=== PATIENT | female | born 2000 | race Caucasian/White ===

== ENCOUNTER → 2019-04-04 09:26 | Outpatient (BNVA) | payer MEDICARE, MEDICAID, SELFPAY | PROVIDERS: Family Provider Family Medicine; PCP Urology; Visit Provider Nurse Practitioner Psychiatric/Mental Health | DX: F84.0 Autistic disorder (principal); R41.83 Borderline intellectual functioning | CPT/HCPCS: 99214; 99215 ==

== ENCOUNTER → 2019-06-27 08:24 | Outpatient (BNVA) | payer MEDICARE, MEDICAID, SELFPAY | PROVIDERS: Family Provider Family Medicine; PCP Urology; Visit Provider Nurse Practitioner Psychiatric/Mental Health | DX: F84.0 Autistic disorder (principal); R41.83 Borderline intellectual functioning | CPT/HCPCS: 99213 ==

== ENCOUNTER → 2019-09-19 07:33 | Outpatient (BNVA) | payer MEDICARE, MEDICAID, SELFPAY | PROVIDERS: Family Provider Family Medicine; PCP Urology; Visit Provider Nurse Practitioner Psychiatric/Mental Health | DX: F84.0 Autistic disorder (principal); R41.83 Borderline intellectual functioning | CPT/HCPCS: 99213 ==

== ENCOUNTER → 2019-09-25 08:49 | Outpatient (BNVA) | payer MEDICARE, MEDICAID, SELFPAY | PROVIDERS: Family Provider Family Medicine; PCP Urology; Visit Provider Nurse Practitioner Psychiatric/Mental Health | DX: Z79.899 Other long term (current) drug therapy (principal) | CPT/HCPCS: 80061; 83036 ==

== ENCOUNTER → 2019-12-26 08:20 | Outpatient (BNVA) | payer MEDICARE, MEDICAID, SELFPAY | PROVIDERS: Family Provider Family Medicine; PCP Urology; Visit Provider Nurse Practitioner Psychiatric/Mental Health | DX: F84.0 Autistic disorder (principal); R41.83 Borderline intellectual functioning | CPT/HCPCS: 99213 ==

== ENCOUNTER → 2020-05-01 08:01 | Outpatient (BNVA) | payer MEDICAID, SELFPAY | PROVIDERS: Family Provider Family Medicine; PCP Urology; Visit Provider Nurse Practitioner Psychiatric/Mental Health | DX: F84.0 Autistic disorder (principal); R41.83 Borderline intellectual functioning | CPT/HCPCS: 99214 ==

== ENCOUNTER → 2020-08-02 11:06 | Outpatient (BNVA) | payer MEDICAID, SELFPAY | PROVIDERS: Family Provider Family Medicine; PCP Urology; Visit Provider Nurse Practitioner Psychiatric/Mental Health | DX: F84.0 Autistic disorder (principal); R41.83 Borderline intellectual functioning | CPT/HCPCS: 99214 ==

== ENCOUNTER → 2020-10-25 11:07 | Outpatient (BNVA) | payer MEDICAID, SELFPAY | PROVIDERS: Family Provider Family Medicine; PCP Urology; Visit Provider Nurse Practitioner Psychiatric/Mental Health | DX: F84.0 Autistic disorder (principal); R41.83 Borderline intellectual functioning | CPT/HCPCS: 99214 ==

== ENCOUNTER → 2021-01-17 08:16 | Outpatient (BNVA) | payer MEDICAID, SELFPAY | PROVIDERS: Family Provider Family Medicine; PCP Urology; Visit Provider Nurse Practitioner Psychiatric/Mental Health | DX: F84.0 Autistic disorder (principal); R41.83 Borderline intellectual functioning; Z79.899 Other long term (current) drug therapy | CPT/HCPCS: 99214 ==

== ENCOUNTER → 2021-01-22 08:40 | Outpatient (BNVA) | payer MEDICAID, SELFPAY | PROVIDERS: Family Provider Family Medicine; PCP Urology; Visit Provider Nurse Practitioner Psychiatric/Mental Health | DX: Z79.899 Other long term (current) drug therapy (principal) | CPT/HCPCS: 80053; 80061; 83036 ==

== ENCOUNTER → 2021-04-09 07:47 | Outpatient (BNVA) | payer MEDICAID, SELFPAY | PROVIDERS: Family Provider Family Medicine; PCP Urology; Visit Provider Nurse Practitioner Psychiatric/Mental Health | DX: F84.0 Autistic disorder (principal); R41.83 Borderline intellectual functioning; Z79.899 Other long term (current) drug therapy | CPT/HCPCS: 99214 ==

== ENCOUNTER → 2021-05-21 07:25 | Outpatient (BNVA) | payer MEDICAID, SELFPAY | PROVIDERS: Family Provider Family Medicine; PCP Urology; Visit Provider Nurse Practitioner Psychiatric/Mental Health | DX: F84.0 Autistic disorder (principal); R41.83 Borderline intellectual functioning; Z79.899 Other long term (current) drug therapy | CPT/HCPCS: 99214 ==

== ENCOUNTER → 2021-11-13 10:36 | Outpatient (BNVA) | payer MEDICARE, MEDICAID, SELFPAY | PROVIDERS: Family Provider Family Medicine; PCP Urology; Visit Provider Nurse Practitioner Women's Health | DX: Z01.419 Encounter for gynecological examination (general) (routine) without abnormal findings (principal); R35.0 Frequency of micturition; N92.0 Excessive and frequent menstruation with regular cycle | CPT/HCPCS: 81000; 87077; 87086; 87184; 88175 ==

== ENCOUNTER 2024-09-09 10:07 | Inpatient (IN) | payer MEDICARE, MEDICAID, SELFPAY ==
[2024-09-09 10:18] VITALS: BP 92/57; PULSE 83; RESP 16; TEMP 36.7; O2SAT 97; BMI 20.7
--- NOTE | 2024-09-09 10:19 | W.ED.PSYCHS ---
HPI - Psych General: Chief Complaint: Anxiety Stated Complaint: MHE Time Seen by Provider: 09/09/24 10:12 History of Present Illness: 24-year-old female presents emergency room with complaints of her medication not working. She is on escitalopram and risperidone she receives from primary care physician. She has not seen a psychiatrist. She has autism. She is part of an ISL. Caregiver tells me that last night she was making comments about harming herself and had explosive behavior issues at this time she is very calm and collected she denies any suicidal ideation. Related Data Home Medications ?Medication ?Instructions ?Recorded ?Confirmed fluticasone propionate 50 2 spray intranasal DAILY 04/04/19 09/09/24 mcg/actuation nasal spray,suspension (Flonase Allergy Relief) polyethylene glycol 3350 17 17 gm PO DAILY PRN Constipation 04/04/19 09/09/24 gram/dose oral powder (Miralax) docusate sodium 100 mg capsule 200 mg PO BID 08/02/20 09/09/24 bisacodyl 5 mg tablet,delayed 5 mg PO DAILY PRN Constipation 10/25/20 09/09/24 release cetirizine 10 mg tablet (Zyrtec) 10 mg PO DAILY 04/11/21 09/09/24 diphenhydramine HCl 25 mg capsule 25 mg PO TID PRN allergies 11/13/21 09/09/24 (Benadryl) Natural Vitality Calm See Rx Instructions .Route .COMPLEX 09/09/24 09/09/24 acetaminophen 325 mg tablet 325 mg PO Q4H PRN pain/temp>100 or 09/09/24 09/09/24 cramps cholecalciferol (vitamin D3) 50 50 mcg PO DAILY 09/09/24 09/09/24 mcg (2,000 unit) tablet (Vitamin D3) citalopram 20 mg tablet (Celexa) 20 mg PO BEDTIME 09/09/24 09/09/24 dextromethorphan-guaifenesin 5 10 ml PO Q6H PRN Cough 09/09/24 09/09/24 mg-100 mg/5 mL oral liquid (Robitussin Cough-Chest Congestion DM) lovastatin 10 mg tablet 10 mg PO .SUPPER 09/09/24 09/09/24 methenamine hippurate 1 gram tablet 1 g PO DAILY 09/09/24 09/09/24 risperidone 1 mg tablet (Risperdal) See Rx Instructions .Route .COMPLEX 09/09/24 09/09/24 sodium chloride 1,000 mg soluble 1,000 mg PO DAILY 09/09/24 09/09/24 tablet sodium phosphates 19 gram-[address] DAILY PRN Constipation 09/09/24 09/09/24 gram/118 mL enema (Fleet Enema) Previous Rx's ?Medication ?Instructions ?Recorded norgestimate 0.25 mg-ethinyl 1 tab PO DAILY #84 tabs 11/13/21 estradiol 0.035 mg tablet (Sprintec (28)) lamotrigine 200 mg tablet 200 mg PO BID #180 tabs 01/21/22 (Lamictal) Allergies Allergy/AdvReac Type Severity Reaction Status Date / Time chlorpromazine (From Allergy Unknown Unknown Verified 11/13/21 09:49 Thorazine) methylphenidate (From Allergy Unknown Unknown Verified 11/13/21 09:49 Concerta) oxcarbazepine (From Allergy Unknown Unknown Verified 11/13/21 09:49 Trileptal) Review of Systems Const: Denies: fever(s) or chills Card: Denies: chest pain Resp: Denies: dyspnea GI: Denies: abdominal pain : Denies: dysuria, urinary frequency or urinary urgency Musc: Denies: neck pain or back pain Skin/Breast: Denies: rash PFSH ED PFSH: Medical History Hypercholesteremia No pertinent past medical history neghx: htn,dm,thyroid,dvt/pe PCP: Goran Sr Borderline intellectual disability Autism spectrum disorder Surgical History History of dental surgery wisdom teeth removal--unsure of date Hx of eye surgery L eye for double vision correction Family History Other Unknown family medical history Denies family history of Colon cancer Ovarian cancer Diabetes Clotting disorder Breast cancer Bleeding disorder Hypertension Uterine cancer Stroke Social History Smoking and tobacco/nicotine status: never used tobacco/nicotine Physical Exam Const: COMMON NORMALS: no acute distress GENERAL APPEARANCE: cooperative and comfortable ORIENTATION/CONSCIOUSNESS: Yes awake HENMT: COMMON NORMALS: normocephalic, atraumatic and hearing grossly normal bilaterally HEAD & SCALP: normocephalic and atraumatic Resp: COMMON NORMALS: normal respiratory effort, No retractions, No use of accessory muscles and clear to auscultation bilaterally AUSCULTATION: clear to auscultation bilaterally Cardio: COMMON NORMALS: regular rate, regular rhythm and No murmurs present (Cardio) RATE: regular rate RHYTHM: regular rhythm GI: COMMON NORMALS: Soft to palpation and No hepatosplenomegaly present AUSCULTATION: Yes normoactive bowel sounds PALPATION: Yes Soft to palpation, No Tenderness to palpation present (GI), No Guarding due to palpation present (GI) and Yes No hepatosplenomegaly present Extremity: COMMON NORMALS: normal to inspection, capillary refill normal, no clubbing, cyanosis or edema, no calf tenderness and no pedal edema Skin: COMMON NORMALS: no rashes or lesions noted GENERAL SKIN EXAM: no rashes or lesions noted Course Vital Signs: Vital signs: Vital Signs Temperature 97.9 F 09/09/24 14:00 Pulse Rate 91 09/09/24 14:00 Respiratory Rate 16 09/09/24 14:00 Blood Pressure 100/69 09/09/24 14:00 Pulse Oximetry 98 09/09/24 14:00 Oxygen Delivery Me thod Room Air 09/09/24 14:00 MDM - Psych Medical Decision Making Concerning with explosive behaviors and reports of suicidal ideation she is not currently seeing psychiatry. I think she would benefit from inpatient evaluation and formal evaluation by psychiatry especially given the report of suicidal ideation. Discussed with Dr. Durbin he agrees orders written for admission Medical Records I reviewed the patient's medical records. Lab Data I reviewed the patient's lab results. 09/09/24 10:26 09/09/24 10:26 Laboratory Results WBC 3.54 10^3/uL (3.29-11.43) 09/09/24 10:26 RBC 3.99 10^6/uL (3.85-5.65) 09/09/24 10:26 Hgb 13.60 g/dL (11.27-16.99) 09/09/24 10:26 Hct 40.3 % (36-47) 09/09/24 10: MCV 101.0 fl (85-98) H 09/09/24 10:26 MCH 34.1 pg (27-33) H 09/09/24 10: MCHC 33.7 g/dL (30-55) 09/09/24 10:26 RDW 11.9 % (12.1-15.1) L 09/09/24 10:26 Plt Count 190 10^3/cmm (157-399) 09/09/24 10:26 MPV 9.1 fL (7.4-10.4) 09/09/24 10:26 Neut % (Auto) 58.5 % 09/09/24 10:26 Lymph % (Auto) 31.9 % 09/09/24 10:26 [place] % (Auto) 8.8 % 09/09/24 10:26 Eos % (Auto) 0.0 % 09/09/24 10: Baso % (Auto) 0.8 % 09/09/24 10:26 Neut # (Auto) 2.07 10^3/uL (1.8-7.7) 09/09/24 10:26 Lymph # (Auto) 1.1 10^3/uL (0.8-4.8) 09/09/24 10:26 [place] # (Auto) 0.3 10^3/uL (0.2-0.9) 09/09/24 10:26 Eos # (Auto) 0.0 10^3/uL (0.0-0.8) 09/09/24 10: Baso # (Auto) 0.0 10^3/uL (0.0-0.1) 09/09/24 10:26 Nucleated RBC % (auto) 0 % 09/09/24 10: Nucleated RBCs # 0.0 /100WBC 09/09/24 10:26 Sodium 139 mmol/L (136-145) 09/09/24 10:26 Potassium 4.2 mmol/L (3.5-5.1) 09/09/24 10:26 Chloride 102 mmol/L (98-107) 09/09/24 10:26 Carbon Dioxide 26 mmol/L (22-29) 09/09/24 10:26 Anion Gap 15.2 (5-19) 09/09/24 10:26 BUN 13 mg/dL (6-20) 09/09/24 10:26 Creatinine 0.7 mg/dL (0.5-0.9) 09/09/24 10:26 GFR Calculation 101.1 mL/min (90-130) 09/09/24 10:26 Glucose 85 mg/dL (65-115) 09/09/24 10:26 Calculated Osmolality 287 mOsm/kg (285-295) 09/09/24 10:26 Calcium 9.6 mg/dL (8.5-10.5) 09/09/24 10:26 Total Bilirubin 0.3 mg/dL (0.15-1.2) 09/09/24 10:26 AST 12 U/L (0-32) 09/09/24 10:26 ALT 14 U/L (0-33) 09/09/24 10:26 Alkaline Phosphatase 75 U/L (35-105) 09/09/24 10:26 Total Protein 6.8 g/dL (6.6-8.7) 09/09/24 10:26 Albumin 4.4 g/dL (3.5-5.2) 09/09/24 10:26 Globulin 2.4 g/dL (1.3-4.6) 09/09/24 10:26 HCG, Qual Negative (Negative) 09/09/24 10:26 Salicylates < 0.3 mg/dL (3-10) L 09/09/24 10:26 Acetaminophen < 5.0 ug/mL (10-30) L 09/09/24 10:26 No radiology studies performed this visit Discharge Plan Discharge Patient Disposition: Admitted As Inpatient Admit Provider: Pb Durbin Clinical Impression: Suicidal ideation, Autism spectrum disorder, Borderline intellectual disability, Outbursts of explosive behavior Condition: Stable Coding Level of Care Code ED Water Pollution Scientist for Julián Gayle
[2024-09-09 10:30] LABS: Basophils % 0.8 %; Hematocrit 40.3 % (36-47); Lymphocytes # 1.1 10^3/uL (0.8-4.8); Lymphocytes % 31.9 %; Mean Corpuscular HGB Conc 33.7 g/dL (30-55); Mean Corpuscular Hemoglobin 34.1 pg (27-33); Mean Platelet Volume 9.1 fL (7.4-10.4); Monocytes # 0.3 10^3/uL (0.2-0.9); Monocytes % 8.8 %; Neutrophils # 2.07 10^3/uL (1.8-7.7); Neutrophils % 58.5 %; Nucleated Red Blood Cells % 0 %; Platelet Count 190 10^3/cmm (157-399); Red Blood Count 3.99 10^6/uL (3.85-5.65); Red Cell Distribution Width 11.9 % (12.1-15.1); White Blood Count 3.54 10^3/uL (3.29-11.43)
[2024-09-09 10:48] LABS: Alanine Aminotransferase 14 U/L (0-33); Albumin Level 4.4 g/dL (3.5-5.2); Alkaline Phosphatase 75 U/L (35-105); Anion Gap 15.2 (5-19); Aspartate Amino Transferase 12 U/L (0-32); Blood Urea Nitrogen 13 mg/dL (6-20); Calcium 9.6 mg/dL (8.5-10.5); Carbon Dioxide 26 mmol/L (22-29); Chloride 102 mmol/L (98-107); Globulin 2.4 g/dL (1.3-4.6); Glomerular Filtration Rate 101.1 mL/min (90-130); Glucose 85 mg/dL (65-115); Osmolality Calculated 287 mOsm/kg (285-295); Potassium 4.2 mmol/L (3.5-5.1); Sodium 139 mmol/L (136-145); Total Bilirubin 0.3 mg/dL (0.15-1.2); Total Protein 6.8 g/dL (6.6-8.7)
[2024-09-09 10:51] LABS: Acetaminophen < 5.0 ug/mL (10-30); Salicylate < 0.3 mg/dL (3-10)
[2024-09-09 10:54] LABS: HCG, Serum Qual Negative (Negative)
--- NOTE | 2024-09-09 11:14 | PC.PHAR ---
Pt is from [facility]. Caregiver has med list.
[2024-09-09 12:00] VITALS: BP 96/63; PULSE 75; O2SAT 96
[2024-09-09 12:39] VITALS: BP 96/69; PULSE 77; RESP 16; TEMP 37.1; O2SAT 98
[2024-09-09 12:44] LABS: Bilirubin Urine Negative (Negative); Blood Urine Negative (Negative); Glucose Urine UA Negative (Normal); Ketones Urine Negative (Negative); Leukocyte Esterase Urine Negative (Negative); Nitrate Urine Negative (Negative); Protein Urine Negative (Negative); Specific Gravity, Urine 1.006 (1.005-1.030); Urine Appearance Clear (CLEAR); Urine Color Yellow (Yellow); Urobilinogen Urine 0.2 mg/dL (Negative)
[2024-09-09 12:49] LABS: Add Urine Microscopic? YES; Bacteria Urine None Seen /hpf; Hyaline Casts Urine 0-4 /lpf; RBC Urine 0-2 /hpf (0-2); Squamous Epithelial Cell Urine 0-5 /hpf (0-5); WBC Urine 0-5 /hpf (0-5)
[2024-09-09 13:07] LABS: Amphetamines Screen Urine Negative (Negative); Barbiturates Screen Urine Negative (Negative); Benzodiazepines Screen Urine Negative (Negative); Cocaine Screen Urine Negative (Negative); Opiate Screen Urine Negative (Negative); PCP Screen Urine Negative (Negative); THC Screen Urine Negative (Negative)
--- NOTE | 2024-09-09 13:31 | PC.ADMIT ---
[id number] [facility] [address] Admission Note:Pt states that staff brought her in because she was hitting herself in the head. She states that she was doing this because she was mad at herself for yelling and arguing with the staff. When asked why this happened she states that they were trying to get me to try different patterns on an activity and I didn't want to She states that she eventually tried it and it went ok for her. She states that she made no threats to hurt herself or others. She is calm and cooperative on assessment and sat on bedside eating lunch while we talked through all the questions. The patient,Krystina Soliz,24 y/o, was given written information regarding hospital policies, unit procedures and contact persons. Patient's smoking status: never smoked. Vital Signs - 8 hr 09/09/24 10:18 09/09/24 12:00 09/09/24 12:39 Temperature 98.0 F 98.7 F Pulse Rate 83 75 77 Respiratory Rate 16 16 Blood Pressure 92/57 96/63 96/69 Pulse Oximetry 97 96 98 Oxygen Delivery Method Room Air Room Air 09/09/24 12:39 Temperature Pulse Rate Respiratory Rate Blood Pressure Pulse Oximetry Oxygen Delivery Method Room Air
[2024-09-09 14:00] VITALS: BP 100/69; PULSE 91; RESP 16; TEMP 36.6; O2SAT 98
[2024-09-09 21:30] VITALS: BP 102/72; PULSE 98; RESP 16; TEMP 37.1; O2SAT 96
[2024-09-09] MEDS: trazodone 50 mg Tablet PO (22:26)
[2024-09-10 05:51] VITALS: BP 98/68; PULSE 80; RESP 16; TEMP 36.6; O2SAT 95
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
[2024-09-10 14:00] VITALS: BP 98/67; PULSE 93; RESP 18; TEMP 37.1; O2SAT 95
[2024-09-10] MEDS: docusate sodium 100 mg Capsule 200 MG PO (17:55)
[2024-09-10] MEDS: lamoTRIgine 100 mg Tablet 200 MG PO (17:55)
[2024-09-10] MEDS: ATORVASTATIN 10 MG TABLET PO (17:55)
[2024-09-10] MEDS: risperiDONE 1 mg Tablet 2 MG PO (20:15)
[2024-09-10] MEDS: citalopram 20 mg Tablet PO (20:15)
[2024-09-10 21:57] VITALS: BP 105/72; PULSE 88; RESP 16; O2SAT 96
[2024-09-11 06:00] VITALS: BP 102/63; PULSE 108; RESP 16; TEMP 36.9; O2SAT 97
[2024-09-11] MEDS: cholecalciferol (vitamin D3) 1,000 unit Tablet 50 UNIT PO (08:29)
[2024-09-11] MEDS: risperiDONE 1 mg Tablet PO (08:29)
[2024-09-11] MEDS: lamoTRIgine 100 mg Tablet 200 MG PO ×2 (08:29→17:46)
[2024-09-11] MEDS: cetirizine 10 mg Tablet PO (08:29)
[2024-09-11] MEDS: docusate sodium 100 mg Capsule 200 MG PO ×2 (08:29→17:46)
[2024-09-11] MEDS: sodium chloride 1 gm Tablet PO (08:58)
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
[2024-09-11 14:00] VITALS: BP 106/71; PULSE 98; RESP 17; TEMP 37.1; O2SAT 98
[2024-09-11] MEDS: ATORVASTATIN 10 MG TABLET PO (17:46)
[2024-09-11 19:25] VITALS: BP 105/67; PULSE 63; RESP 18; TEMP 36.7; O2SAT 97
[2024-09-11] MEDS: citalopram 20 mg Tablet PO (19:47)
[2024-09-11] MEDS: risperiDONE 1 mg Tablet 2 MG PO (19:48)
[2024-09-12 06:00] VITALS: BP 104/61; PULSE 66; RESP 16; O2SAT 98
[2024-09-12] MEDS: cholecalciferol (vitamin D3) 1,000 unit Tablet 50 UNIT PO (08:51)
[2024-09-12] MEDS: cetirizine 10 mg Tablet PO (08:51)
[2024-09-12] MEDS: docusate sodium 100 mg Capsule 200 MG PO ×2 (08:51→17:22)
[2024-09-12] MEDS: lamoTRIgine 100 mg Tablet 200 MG PO ×2 (09:02→17:22)
[2024-09-12] MEDS: fluticasone nasal spray 16gm Btl 2 SPRAY INTRANASAL (09:02)
[2024-09-12] MEDS: sodium chloride 1 gm Tablet PO (09:02)
[2024-09-12] MEDS: risperiDONE 1 mg Tablet PO ×2 (09:02→20:09)
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
[2024-09-12 14:00] VITALS: BP 100/61; PULSE 98; RESP 18; TEMP 36.9; O2SAT 97
[2024-09-12] MEDS: escitalopram 10 mg Tablet PO (16:17)
[2024-09-12] MEDS: ATORVASTATIN 10 MG TABLET PO (17:22)
[2024-09-12 19:46] VITALS: BP 113/66; PULSE 99; RESP 16; TEMP 36.7; O2SAT 97
[2024-09-12] MEDS: citalopram 20 mg Tablet 10 MG PO (20:09)
[2024-09-12] MEDS: paliperidone ER 3 mg Tablet PO (20:09)
[2024-09-13 05:55] VITALS: BP 117/81; PULSE 85; RESP 16; TEMP 36.8; O2SAT 97
[2024-09-13] MEDS: cetirizine 10 mg Tablet PO (09:31)
[2024-09-13] MEDS: cholecalciferol (vitamin D3) 1,000 unit Tablet 50 UNIT PO (09:31)
[2024-09-13] MEDS: escitalopram 10 mg Tablet PO (09:31)
[2024-09-13] MEDS: paliperidone ER 3 mg Tablet PO (09:31)
[2024-09-13] MEDS: lamoTRIgine 100 mg Tablet 200 MG PO ×2 (09:31→18:01)
[2024-09-13] MEDS: risperiDONE 1 mg Tablet PO ×2 (09:31→20:00)
[2024-09-13] MEDS: docusate sodium 100 mg Capsule 200 MG PO ×2 (09:32→18:00)
[2024-09-13] MEDS: fluticasone nasal spray 16gm Btl 2 SPRAY INTRANASAL (09:32)
[2024-09-13] MEDS: sodium chloride 1 gm Tablet PO (09:32)
[2024-09-13 14:00] VITALS: BP 101/65; PULSE 105; RESP 18; TEMP 37.1; O2SAT 97
[2024-09-13] MEDS: ATORVASTATIN 10 MG TABLET PO (18:00)
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
[2024-09-13] MEDS: citalopram 20 mg Tablet 10 MG PO (20:00)
[2024-09-13 20:49] VITALS: BP 107/93; PULSE 101; RESP 16; TEMP 37.4; O2SAT 98
[2024-09-14 06:00] VITALS: BP 96/65; PULSE 86; RESP 17; O2SAT 98
[2024-09-14] MEDS: paliperidone ER 6 mg Tablet PO (08:17)
[2024-09-14] MEDS: fluticasone nasal spray 16gm Btl 2 SPRAY INTRANASAL (08:17)
[2024-09-14] MEDS: cholecalciferol (vitamin D3) 1,000 unit Tablet 50 UNIT PO (08:17)
[2024-09-14] MEDS: escitalopram 10 mg Tablet 20 MG PO (08:19)
[2024-09-14] MEDS: docusate sodium 100 mg Capsule 200 MG PO ×2 (08:19→17:15)
[2024-09-14] MEDS: cetirizine 10 mg Tablet PO (08:19)
[2024-09-14] MEDS: lamoTRIgine 100 mg Tablet 200 MG PO ×2 (08:19→17:16)
[2024-09-14] MEDS: sodium chloride 1 gm Tablet PO (08:19)
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
[2024-09-14 14:00] VITALS: BP 99/69; PULSE 106; RESP 16; TEMP 36.6; O2SAT 95
[2024-09-14] MEDS: ATORVASTATIN 10 MG TABLET PO (17:16)
[2024-09-14 19:45] VITALS: BP 114/69; PULSE 102; RESP 16; TEMP 36.9; O2SAT 96
[2024-09-15 06:00] VITALS: BP 109/68; PULSE 80; RESP 16; TEMP 36.7; O2SAT 98
[2024-09-15] MEDS: cholecalciferol (vitamin D3) 1,000 unit Tablet 50 UNIT PO (08:41)
[2024-09-15] MEDS: lamoTRIgine 100 mg Tablet 200 MG PO ×2 (08:43→17:33)
[2024-09-15] MEDS: docusate sodium 100 mg Capsule 200 MG PO ×2 (08:44→17:32)
[2024-09-15] MEDS: paliperidone ER 6 mg Tablet PO (08:44)
[2024-09-15] MEDS: escitalopram 10 mg Tablet 20 MG PO (08:44)
[2024-09-15] MEDS: sodium chloride 1 gm Tablet PO (08:45)
[2024-09-15] MEDS: cetirizine 10 mg Tablet PO (08:46)
[2024-09-15] MEDS: fluticasone nasal spray 16gm Btl 2 SPRAY INTRANASAL (08:54)
[2024-09-15 14:00] VITALS: BP 103/68; PULSE 98; RESP 16; TEMP 36.8; O2SAT 95
--- NOTE | 2024-09-15 14:19 | DCPLANNER ---
IMM completed 09/15/2024 @ 9150 over the phone with guardian, Lalita.
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
[2024-09-15] MEDS: ATORVASTATIN 10 MG TABLET PO (17:33)
[2024-09-15 21:28] VITALS: BP 108/66; PULSE 87; RESP 16; TEMP 36.8; O2SAT 96
[2024-09-16 06:00] VITALS: BP 99/61; PULSE 91; RESP 16; TEMP 36.7; O2SAT 97
[2024-09-16] MEDS: paliperidone ER 6 mg Tablet PO (09:25)
[2024-09-16] MEDS: escitalopram 10 mg Tablet 20 MG PO (09:25)
[2024-09-16] MEDS: cholecalciferol (vitamin D3) 1,000 unit Tablet 50 UNIT PO (09:25)
[2024-09-16] MEDS: docusate sodium 100 mg Capsule 200 MG PO (09:25)
[2024-09-16] MEDS: cetirizine 10 mg Tablet PO (09:26)
[2024-09-16] MEDS: fluticasone nasal spray 16gm Btl 2 SPRAY INTRANASAL (09:26)
[2024-09-16] MEDS: lamoTRIgine 100 mg Tablet 200 MG PO (09:26)
[2024-09-16] MEDS: sodium chloride 1 gm Tablet PO (09:26)
[2024-09-16 10:52] VITALS: BP 99/61; PULSE 91; RESP 17; TEMP 36.7; O2SAT 97
== END 2024-09-16 12:15 | disposition home or self-care (01) | DRG 884 ==
LOC: ER 11:09 → NP 11:51
PROVIDERS: Admitting Provider Psychiatry & Neurology Psychiatry; Emergency Provider Family Medicine; PCP Urology; Visit Provider Psychiatry & Neurology Psychiatry
DX: F84.0 Autistic disorder (principal); R45.851 Suicidal ideations; E78.00 Pure hypercholesterolemia, unspecified; R41.83 Borderline intellectual functioning
CPT/HCPCS: 36415; 80053; 80306; 80307; 81001; 84703; 85025; 97150; 97165; 99285; J9999